=== PATIENT | male | born 1950 | race Caucasian/White ===

== ENCOUNTER 2016-11-25 02:40 | Emergency (ER) | payer MEDICARE ==
[~2016-11-25] VITALS: Ht 172.7 cm; Wt 114.0 kg
[~2016-11-25 02:40] MED LIST: LISI2.5T PO; METF500T4 PO; METO-93 PO; METO25TA2 PO
[2016-11-25 02:41] VITALS: BP 144/82
== END 2016-11-25 03:17 | disposition left against medical advice (07) ==
LOC: ED 03:15
DX: F41.1 Generalized anxiety disorder (principal); I10 Essential (primary) hypertension; E11.9 Type 2 diabetes mellitus without complications; Z91.013 Allergy to seafood
CPT/HCPCS: 99284

== ENCOUNTER 2016-12-07 12:57 | Inpatient (IN) | payer MEDICARE ==
[~2016-12-07] VITALS: Ht 170.2 cm; Wt 117.8 kg
[2016-12-07] MEDS ORDERED: NYST15CR2 TP (13:22)
[2016-12-07] MEDS ORDERED: ENAL20TA PO (13:22)
[2016-12-07] MEDS ORDERED: ATOR80TA75 PO (13:22)
[2016-12-07] MEDS ORDERED: FURO-93 PO (13:22)
[2016-12-07] MEDS ORDERED: HYDR25TA6 PO (13:22)
[2016-12-07] MEDS ORDERED: SODIUM CHLORIDE FLUSH 10ML SYR IVF ONE (13:30)
[2016-12-07] MEDS ORDERED: SODIUM CHLORIDE 0.9% 1,000ML IVBOLUS ONE (13:30)
[2016-12-07 13:55] LABS: ASPARTATE AMINO TRANSFERASE 68 U/L (15-37); BLOOD UREA NITROGEN 10 mg/dL (7-18)
[2016-12-07] MEDS ORDERED: PIPERACILLIN/TAZO/PMX 3.375GM 50 ML IVPB ONE (15:00)
[2016-12-07] MEDS ORDERED: VANCOMYCIN 1,800 MG in SODIUM CHLORIDE 0.9% 250 ML IV ONE (15:00)
[2016-12-07] MEDS ORDERED: VANCOMYCIN PER PHARMACY MC ONE (15:00)
[2016-12-07 15:12] LABS: PATH.CAST-FLAG NOT PRESENT; SPERM-FLAG NOT PRESENT; SRC-FLAG NOT PRESENT; XTAL-FLAG NOT PRESENT; YLC-FLAG NOT PRESENT
[2016-12-07] MEDS ORDERED: PIPERACILLIN/TAZO/PMX 3.375GM 50 ML ONE (15:19)
[2016-12-07 16:26] LABS: ABG COLLECTION SITE RIGHT BRACHIAL
[2016-12-07] MEDS ORDERED: VANCOMYCIN PER PHARMACY MC PRN (17:00)
[2016-12-07 17:17] LABS: IS PT STATUS REG ER OR PRE ER? YES
[2016-12-07 17:45] LABS: ACETAMINOPHEN < 2 mcg/mL (10-30); IS PT STATUS REG ER OR PRE ER? YES
[2016-12-07] MEDS ORDERED: PHARMACOKINETIC MONITORING MC PRN (19:00)
[2016-12-07] MEDS ORDERED: PHARMACOKINETIC CONSULTATION MC ONE (19:00)
[2016-12-07 19:48] VITALS: BP 111/76
[2016-12-07 20:05] LABS: DAU SCREEN DISCLAIMER
[2016-12-07] MEDS: INSULIN REGULAR 100 UNITS/ML, 3ML VIAL SQ-INSULIN SCH (21:00)
[2016-12-07] MEDS: PIPERACILLIN/TAZO/PMX 3.375GM 50 ML IV SCH (22:55)
[2016-12-08] MEDS ORDERED: MAGNESIUM SULFATE PMX 2GM/50ML 50 ML IV ONE (01:30)
[2016-12-08 01:47] VITALS: BP 103/64
[2016-12-08 02:11] LABS: IS PT STATUS REG ER OR PRE ER? NO
[2016-12-08] MEDS: PIPERACILLIN/TAZO/PMX 3.375GM 50 ML IV SCH ×4 (04:04→21:08)
[2016-12-08 05:21] LABS: HEMOGLOBIN 13.9 g/dL (13.7-18.0)
[2016-12-08 05:39] LABS: ASPARTATE AMINO TRANSFERASE 65 U/L (15-37); BLOOD UREA NITROGEN 9 mg/dL (7-18)
[2016-12-08] MEDS: INSULIN REGULAR 100 UNITS/ML, 3ML VIAL SQ-INSULIN SCH ×4 (09:00→20:54)
[2016-12-08 09:36] VITALS: BP 119/75
[2016-12-08] MEDS: VANCOMYCIN 1,800 MG in SODIUM CHLORIDE 0.9% 250 ML IV SCH (14:35)
[2016-12-08 14:59] VITALS: BP 104/64
[2016-12-08 20:09] VITALS: BP 131/81
[2016-12-08] MEDS: NYSTATIN CRM 15GM TP SCH (21:09)
[2016-12-09 00:47] VITALS: BP 155/81
[2016-12-09] MEDS: PIPERACILLIN/TAZO/PMX 3.375GM 50 ML IV SCH ×4 (04:03→21:42)
[2016-12-09] MEDS: VANCOMYCIN 1,800 MG in SODIUM CHLORIDE 0.9% 250 ML IV SCH (05:04)
[2016-12-09] MEDS: INSULIN REGULAR 100 UNITS/ML, 3ML VIAL SQ-INSULIN SCH ×4 (07:00→21:42)
[2016-12-09 07:07] VITALS: BP 138/90
[2016-12-09] MEDS ORDERED: FUROSEMIDE 10 MG/ML ORAL SOL PO SCH (09:00)
[2016-12-09] MEDS: ACETAMINOPHEN 325 MG TABLET PO PRN ×2 (09:45→16:42)
[2016-12-09] MEDS: NYSTATIN CRM 15GM TP SCH ×3 (09:45→21:42)
[2016-12-09] MEDS: FUROSEMIDE 20 MG TABLET PO SCH ×2 (09:45→21:42)
[2016-12-09] MEDS: HEPARIN 5,000 UNITS/ML, 1ML SQ SCH ×2 (09:45→16:31)
[2016-12-09] MEDS: POTASSIUM CHLORIDE 20 MEQ TAB.ER.PRT PO SCH (09:45)
[2016-12-09 13:54] VITALS: BP 148/81
[2016-12-09 19:14] VITALS: BP 153/88
[2016-12-09 20:21] VITALS: BP 180/86
[2016-12-09] MEDS: VANCOMYCIN 2,000 MG in SODIUM CHLORIDE 0.9% 500 ML IV SCH (22:37)
[2016-12-10] MEDS: HEPARIN 5,000 UNITS/ML, 1ML SQ SCH ×3 (02:21→17:32)
[2016-12-10 02:48] VITALS: BP 151/90
[2016-12-10] MEDS: PIPERACILLIN/TAZO/PMX 3.375GM 50 ML IV SCH ×4 (04:25→22:40)
[2016-12-10 05:38] LABS: HEMOGLOBIN 13.7 g/dL (13.7-18.0)
[2016-12-10 05:53] LABS: BLOOD UREA NITROGEN 16 mg/dL (7-18)
[2016-12-10] MEDS: INSULIN REGULAR 100 UNITS/ML, 3ML VIAL SQ-INSULIN SCH ×4 (07:00→21:00)
[2016-12-10 07:32] VITALS: BP 162/105
[2016-12-10] MEDS ORDERED: METOPROLOL TARTRATE 25 MG TABLET PO SCH (08:30)
[2016-12-10] MEDS: NYSTATIN CRM 15GM TP SCH ×3 (10:15→22:40)
[2016-12-10] MEDS: ACETAMINOPHEN 325 MG TABLET PO PRN ×2 (10:15→15:55)
[2016-12-10] MEDS: POTASSIUM CHLORIDE 20 MEQ TAB.ER.PRT PO SCH (10:15)
[2016-12-10] MEDS: FUROSEMIDE 20 MG TABLET PO SCH ×2 (10:16→22:41)
[2016-12-10] MEDS: LISINOPRIL 20 MG TABLET PO SCH ×2 (10:16→22:41)
[2016-12-10 12:10] VITALS: BP 148/99
[2016-12-10 13:47] VITALS: BP 144/91
[2016-12-10] MEDS: NICOTINE 21 MG/24 HR PATCH.TD24 TD SCH (16:28)
[2016-12-10] MEDS: VANCOMYCIN 2,000 MG in SODIUM CHLORIDE 0.9% 500 ML IV SCH (17:27)
[2016-12-10] MEDS: METOPROLOL TARTRATE 25 MG TABLET PO SCH (17:31)
[2016-12-10] MEDS ORDERED: METOPROLOL TARTRATE 50 MG TABLET PO SCH (18:00)
[2016-12-10 19:22] VITALS: BP 164/98
[2016-12-11 02:26] VITALS: BP 152/100
[2016-12-11] MEDS: HEPARIN 5,000 UNITS/ML, 1ML SQ SCH ×3 (02:54→16:45)
[2016-12-11] MEDS: PIPERACILLIN/TAZO/PMX 3.375GM 50 ML IV SCH ×4 (04:03→21:49)
[2016-12-11] MEDS: ASPIRIN 81 MG TABLET EC PO SCH (06:33)
[2016-12-11] MEDS: METOPROLOL TARTRATE 25 MG TABLET PO SCH ×2 (06:33→16:45)
[2016-12-11] MEDS: INSULIN REGULAR 100 UNITS/ML, 3ML VIAL SQ-INSULIN SCH ×4 (07:00→21:54)
[2016-12-11 07:17] VITALS: BP 158/101
[2016-12-11] MEDS: NICOTINE 21 MG/24 HR PATCH.TD24 TD SCH (08:28)
[2016-12-11] MEDS: NYSTATIN CRM 15GM TP SCH ×3 (08:28→21:49)
[2016-12-11] MEDS: LISINOPRIL 20 MG TABLET PO SCH ×2 (08:29→21:49)
[2016-12-11] MEDS: FUROSEMIDE 20 MG TABLET PO SCH ×2 (08:29→21:49)
[2016-12-11] MEDS: ACETAMINOPHEN 325 MG TABLET PO PRN (08:29)
[2016-12-11] MEDS: POTASSIUM CHLORIDE 20 MEQ TAB.ER.PRT PO SCH (08:29)
[2016-12-11] MEDS ORDERED: NICOTINE 21 MG/24 HR PATCH.TD24 TD SCH (09:00)
[2016-12-11] MEDS ORDERED: ENAL20TA PO (13:13)
[2016-12-11] MEDS: VANCOMYCIN 2,000 MG in SODIUM CHLORIDE 0.9% 500 ML IV SCH (13:37)
[2016-12-11 14:45] VITALS: BP 141/87
[2016-12-11] MEDS: GABAPENTIN 300 MG CAPSULE PO SCH ×2 (16:45→21:49)
[2016-12-11 19:47] VITALS: BP 142/90
[2016-12-12 01:52] VITALS: BP 126/83
[2016-12-12] MEDS: HEPARIN 5,000 UNITS/ML, 1ML SQ SCH ×2 (01:57→10:00)
[2016-12-12] MEDS: PIPERACILLIN/TAZO/PMX 3.375GM 50 ML IV SCH ×2 (04:18→10:37)
[2016-12-12 05:39] VITALS: BP 110/57
[2016-12-12] MEDS: METOPROLOL TARTRATE 25 MG TABLET PO SCH (05:42)
[2016-12-12] MEDS: ASPIRIN 81 MG TABLET EC PO SCH (05:42)
[2016-12-12] MEDS: INSULIN REGULAR 100 UNITS/ML, 3ML VIAL SQ-INSULIN SCH ×2 (07:00→11:00)
[2016-12-12] MEDS: LISINOPRIL 20 MG TABLET PO SCH (07:59)
[2016-12-12] MEDS: VANCOMYCIN 2,000 MG in SODIUM CHLORIDE 0.9% 500 ML IV SCH (07:59)
[2016-12-12] MEDS: NICOTINE 21 MG/24 HR PATCH.TD24 TD SCH (07:59)
[2016-12-12] MEDS: POTASSIUM CHLORIDE 20 MEQ TAB.ER.PRT PO SCH (08:00)
[2016-12-12] MEDS: NYSTATIN CRM 15GM TP SCH (08:00)
[2016-12-12] MEDS: FUROSEMIDE 20 MG TABLET PO SCH (08:00)
[2016-12-12] MEDS: GABAPENTIN 300 MG CAPSULE PO SCH ×2 (08:00→13:39)
[2016-12-12 08:55] VITALS: BP 135/90
[2016-12-12] MEDS ORDERED: GABA300C10 PO (11:08)
[2016-12-12] MEDS ORDERED: POTA20TA14 PO (11:08)
[2016-12-12] MEDS ORDERED: METO25TA35 PO (11:08)
[2016-12-12] MEDS ORDERED: NYST15CR33 TP (11:08)
[2016-12-12] MEDS ORDERED: ASPI-621 PO (11:08)
[2016-12-12] MEDS ORDERED: LISI-170 PO (11:08)
[2016-12-12] MEDS ORDERED: ALPR-475 PO (11:08)
[2016-12-12] MEDS ORDERED: NICO1PAT5 TD (11:08)
[2016-12-12] MEDS ORDERED: CEFD300C2 PO (11:21)
[2016-12-12] MEDS ORDERED: FURO-92 PO (11:29)
[2016-12-12 13:20] VITALS: BP 128/85
== END 2016-12-12 15:42 | disposition home or self-care (01) | DRG 291 ==
LOC: ED 15:12 → EDIP 15:13 → ED 15:19 → 4EST 18:16 → DCLOUNGE 12-12 15:24
PROVIDERS: ADMIT Hospitalist; ATTEND Hospitalist
DX: I11.0 Hypertensive heart disease with heart failure (principal); J96.01 Acute respiratory failure with hypoxia; G93.41 Metabolic encephalopathy; L03.115 Cellulitis of right lower limb; L03.116 Cellulitis of left lower limb; N39.0 Urinary tract infection, site not specified; I50.33 Acute on chronic diastolic (congestive) heart failure; B37.9 Candidiasis, unspecified; E11.9 Type 2 diabetes mellitus without complications; B36.9 Superficial mycosis, unspecified; J44.9 Chronic obstructive pulmonary disease, unspecified; E78.5 Hyperlipidemia, unspecified; I48.0 Paroxysmal atrial fibrillation; F12.90 Cannabis use, unspecified, uncomplicated; M51.36 Other intervertebral disc degeneration, lumbar region; Z90.81 Acquired absence of spleen; Z59.0 Homelessness; Z91.013 Allergy to seafood; R00.1 Bradycardia, unspecified; T44.7X5A Adverse effect of beta-adrenoreceptor antagonists, initial encounter
CPT/HCPCS: 36415; 36600; 70450; 71010; 72170; 74176; 78582; 80048; 80053; 80202; 80307; 80329; 81001; 82140; 82803; 82962; 83605; 83735; 84145; 84439; 84443; 84484; 85025; 85379; 85610; 85730; 87040; 87086; 87324; 93005; 93306; 93970; 96361; 96365; 96366; 96368; J1644; J1815; J2543; J3370; 92523-GN; A9540; A9558; C9898; G0480; J3475; J7030; J7040; J7050

== ENCOUNTER 2016-12-18 03:03 | Inpatient (IN) | payer MEDICARE ==
[~2016-12-18] VITALS: Ht 177.8 cm; Wt 117.0 kg
[~2016-12-18 03:03] MED LIST changes: +ALPR-475 PO; +ASPI-621 PO; +ATOR80TA75 PO; +CEFD300C2 PO; +ENAL20TA PO; +FURO-92 PO; +FURO-93 PO; +GABA300C10 PO; +HYDR25TA6 PO; +LISI-170 PO; +METO25TA35 PO; +NICO1PAT5 TD; +NYST15CR2 TP; +NYST15CR33 TP; +POTA20TA14 PO
[2016-12-18 04:04] LABS: ASPARTATE AMINO TRANSFERASE 18 U/L (15-37); BLOOD UREA NITROGEN 23 mg/dL (7-18)
[2016-12-18 04:08] LABS: DIFF TOTAL CELLS COUNTED 100 CELL DIFF; IS PT STATUS REG ER OR PRE ER? YES
[2016-12-18 04:09] LABS: ANISOCYTOSIS 1+; VERIFY COUNTS? YES
[2016-12-18] MEDS ORDERED: LEVOFLOXACIN/PMX 750MG/150ML 150 ML IVPB ONE (04:30)
[2016-12-18] MEDS ORDERED: FUROSEMIDE 40 MG/4 ML ONE (04:55)
[2016-12-18] MEDS ORDERED: LEVOFLOXACIN/PMX 750MG/150ML 150 ML ONE (04:55)
[2016-12-18] MEDS ORDERED: FUROSEMIDE 40 MG/4 ML IV ONE (05:00)
[2016-12-18] MEDS ORDERED: SODIUM CHLORIDE 0.9%, 500ML IVBOLUS ONE (05:00)
[2016-12-18] MEDS ORDERED: AZITHROMYCIN 500 MG in SODIUM CHLORIDE 0.9% 250 ML IV SCH (06:30)
[2016-12-18] MEDS ORDERED: ONDANSETRON ODT 4 MG PO PRN (06:30)
[2016-12-18] MEDS ORDERED: DOCUSATE 100 MG CAPSULE PO PRN (06:30)
[2016-12-18] MEDS ORDERED: POLYETHYLENE GLYCOL 17 GM PACKET PO PRN (06:30)
[2016-12-18] MEDS ORDERED: BISACODYL 10 MG SUPP PR PRN (06:30)
[2016-12-18] MEDS ORDERED: LABETALOL 5MG/ML, 20ML IV PRN (06:30)
[2016-12-18 07:01] VITALS: BP 125/81
[2016-12-18] MEDS: SODIUM CHLORIDE 0.9% 1,000 ML IV SCH ×2 (07:30→15:30)
[2016-12-18] MEDS ORDERED: HALOPERIDOL 5 MG/ML IM PRN (08:30)
[2016-12-18] MEDS: ENOXAPARIN 40 MG/0.4 ML SQ SCH (08:45)
[2016-12-18] MEDS: CEFTRIAXONE PMX 2GM/50ML 50 ML IV SCH (08:45)
[2016-12-18] MEDS: NICOTINE 14MG/24 HR PATCH.TD24 TD SCH (08:46)
[2016-12-18] MEDS: LISINOPRIL 20 MG TABLET PO SCH (08:46)
[2016-12-18] MEDS: GABAPENTIN 300 MG CAPSULE PO SCH ×3 (08:46→20:55)
[2016-12-18] MEDS ORDERED: LISINOPRIL 20 MG TABLET PO SCH (09:00)
[2016-12-18] MEDS ORDERED: ALBUTEROL/IPRATROPIUM 2.5MG/0.5MG, 3 ML NPPB PRN (12:00)
[2016-12-18] MEDS ORDERED: METOPROLOL TARTRATE 25 MG TABLET PO SCH (18:00)
[2016-12-18 18:40] VITALS: BP 95/64
[2016-12-18 20:29] VITALS: BP 108/57
[2016-12-18] MEDS: ATORVASTATIN 40 MG TABLET PO SCH (20:55)
[2016-12-18] MEDS: TRAZODONE 50MG TABLET PO PRN ×2 (20:55→21:02)
[2016-12-19] MEDS: SODIUM CHLORIDE 0.9% 1,000 ML IV SCH ×2 (00:55→10:00)
[2016-12-19 02:52] VITALS: BP 111/66
[2016-12-19] MEDS: ASPIRIN 81 MG TABLET EC PO SCH (05:55)
[2016-12-19] MEDS: CEFTRIAXONE PMX 2GM/50ML 50 ML IV SCH (05:55)
[2016-12-19] MEDS: ENOXAPARIN 40 MG/0.4 ML SQ SCH (05:55)
[2016-12-19] MEDS: NICOTINE 14MG/24 HR PATCH.TD24 TD SCH (05:55)
[2016-12-19 07:35] VITALS: BP 121/51
[2016-12-19 08:56] LABS: BLOOD UREA NITROGEN 22 mg/dL (7-18)
[2016-12-19] MEDS: GABAPENTIN 300 MG CAPSULE PO SCH ×3 (09:32→20:52)
[2016-12-19] MEDS: LISINOPRIL 20 MG TABLET PO SCH ×2 (09:38→11:48)
[2016-12-19] MEDS ORDERED: ZIPRASIDONE 20 MG INJ IM PRN (11:00)
[2016-12-19] MEDS: ACETAMINOPHEN 325 MG TABLET PO PRN (11:49)
[2016-12-19] MEDS: FUROSEMIDE 40 MG TABLET PO SCH (11:50)
[2016-12-19 13:50] VITALS: BP 139/80
[2016-12-19] MEDS: METOPROLOL TARTRATE 25 MG TABLET PO SCH (18:37)
[2016-12-19 19:15] VITALS: BP 118/75
[2016-12-19] MEDS: ATORVASTATIN 40 MG TABLET PO SCH (20:52)
[2016-12-19] MEDS: CEFDINIR 300 MG CAPSULE PO SCH (20:52)
[2016-12-20 01:28] VITALS: BP 139/87
[2016-12-20 01:52] LABS: DAU SCREEN DISCLAIMER
[2016-12-20] MEDS: ACETAMINOPHEN 325 MG TABLET PO PRN ×3 (02:00→23:46)
[2016-12-20] MEDS: ASPIRIN 81 MG TABLET EC PO SCH (06:08)
[2016-12-20] MEDS: METOPROLOL TARTRATE 25 MG TABLET PO SCH ×2 (06:09→18:32)
[2016-12-20] MEDS: NICOTINE 14MG/24 HR PATCH.TD24 TD SCH (06:11)
[2016-12-20] MEDS: ENOXAPARIN 40 MG/0.4 ML SQ SCH (06:13)
[2016-12-20 06:50] VITALS: BP 143/93
[2016-12-20] MEDS: LISINOPRIL 20 MG TABLET PO SCH (07:40)
[2016-12-20] MEDS: FUROSEMIDE 40 MG TABLET PO SCH (07:41)
[2016-12-20] MEDS: CEFDINIR 300 MG CAPSULE PO SCH ×2 (07:41→19:58)
[2016-12-20] MEDS: GABAPENTIN 300 MG CAPSULE PO SCH ×3 (07:41→19:58)
[2016-12-20 13:30] VITALS: BP 148/95
[2016-12-20 19:30] VITALS: BP 88/60
[2016-12-20] MEDS: ATORVASTATIN 40 MG TABLET PO SCH (19:58)
[2016-12-21] MEDS: METOPROLOL TARTRATE 25 MG TABLET PO SCH ×2 (05:43→16:53)
[2016-12-21] MEDS: ASPIRIN 81 MG TABLET EC PO SCH (06:04)
[2016-12-21] MEDS: ACETAMINOPHEN 325 MG TABLET PO PRN ×2 (06:04→19:39)
[2016-12-21 07:45] VITALS: BP 156/99
[2016-12-21] MEDS: ENOXAPARIN 40 MG/0.4 ML SQ SCH (08:20)
[2016-12-21] MEDS: FUROSEMIDE 40 MG TABLET PO SCH (08:21)
[2016-12-21] MEDS: LISINOPRIL 20 MG TABLET PO SCH (08:22)
[2016-12-21] MEDS: CEFDINIR 300 MG CAPSULE PO SCH ×2 (08:23→19:39)
[2016-12-21] MEDS: GABAPENTIN 300 MG CAPSULE PO SCH (08:23)
[2016-12-21] MEDS: NICOTINE 14MG/24 HR PATCH.TD24 TD SCH (08:25)
[2016-12-21 11:09] LABS: BLOOD UREA NITROGEN 18 mg/dL (7-18)
[2016-12-21] MEDS ORDERED: ARIPIPRAZOLE 5 MG TABLET PO ONE (14:00)
[2016-12-21 14:35] VITALS: BP 145/96
[2016-12-21] MEDS: GABAPENTIN 400 MG CAPSULE PO SCH ×2 (16:52→19:39)
[2016-12-21] MEDS: ATORVASTATIN 40 MG TABLET PO SCH (19:39)
[2016-12-21 19:40] VITALS: BP 132/87
[2016-12-22 03:05] VITALS: BP 118/81
[2016-12-22] MEDS: ACETAMINOPHEN 325 MG TABLET PO PRN (05:51)
[2016-12-22] MEDS: METOPROLOL TARTRATE 25 MG TABLET PO SCH ×2 (05:51→17:02)
[2016-12-22] MEDS: ASPIRIN 81 MG TABLET EC PO SCH (05:51)
[2016-12-22 07:48] VITALS: BP 121/79
[2016-12-22] MEDS ORDERED: PNEUMOCOCCAL 23 VACCINE IM-VACC ONE (08:30)
[2016-12-22] MEDS ORDERED: ARIPIPRAZOLE 10 MG TABLET PO SCH (09:00)
[2016-12-22] MEDS ORDERED: ARIPIPRAZOLE 5 MG TABLET PO SCH (09:00)
[2016-12-22] MEDS: GABAPENTIN 400 MG CAPSULE PO SCH (09:53)
[2016-12-22] MEDS: FUROSEMIDE 40 MG TABLET PO SCH (09:53)
[2016-12-22] MEDS: CEFDINIR 300 MG CAPSULE PO SCH ×2 (09:54→22:04)
[2016-12-22] MEDS: NICOTINE 14MG/24 HR PATCH.TD24 TD SCH (09:54)
[2016-12-22] MEDS: ENOXAPARIN 40 MG/0.4 ML SQ SCH (09:55)
[2016-12-22] MEDS: LISINOPRIL 20 MG TABLET PO SCH (09:55)
[2016-12-22 13:59] VITALS: BP 138/83
[2016-12-22] MEDS: GABAPENTIN 300 MG CAPSULE PO SCH ×2 (17:02→22:04)
[2016-12-22 19:55] VITALS: BP 128/84
[2016-12-22] MEDS: ATORVASTATIN 40 MG TABLET PO SCH (22:04)
[2016-12-23 01:47] VITALS: BP 136/87
[2016-12-23] MEDS: METOPROLOL TARTRATE 25 MG TABLET PO SCH ×2 (05:39→17:55)
[2016-12-23] MEDS: ASPIRIN 81 MG TABLET EC PO SCH (05:39)
[2016-12-23 08:30] VITALS: BP 129/89
[2016-12-23 09:18] LABS: BLOOD UREA NITROGEN 25 mg/dL (7-18)
[2016-12-23] MEDS: ENOXAPARIN 40 MG/0.4 ML SQ SCH (09:28)
[2016-12-23] MEDS: LISINOPRIL 20 MG TABLET PO SCH (09:28)
[2016-12-23] MEDS: CEFDINIR 300 MG CAPSULE PO SCH ×2 (09:28→21:40)
[2016-12-23] MEDS: GABAPENTIN 300 MG CAPSULE PO SCH ×2 (09:28→17:55)
[2016-12-23] MEDS: NICOTINE 14MG/24 HR PATCH.TD24 TD SCH (09:29)
[2016-12-23] MEDS: FUROSEMIDE 40 MG TABLET PO SCH (09:29)
[2016-12-23] MEDS: ARIPIPRAZOLE 5 MG TABLET PO SCH (09:29)
[2016-12-23 10:06] LABS: DIFF TOTAL CELLS COUNTED 100 CELL DIFF
[2016-12-23 10:13] LABS: VERIFY COUNTS? YES
[2016-12-23 14:30] VITALS: BP 140/93
[2016-12-23 19:21] VITALS: BP_SYST 110; BP_DIAS 7; BP_DIAS 76
[2016-12-23] MEDS: ATORVASTATIN 40 MG TABLET PO SCH (21:40)
[2016-12-23] MEDS: ACETAMINOPHEN 325 MG TABLET PO PRN (21:44)
[2016-12-24] MEDS: GABAPENTIN 300 MG CAPSULE PO SCH ×4 (00:39→20:41)
[2016-12-24 01:32] VITALS: BP 122/78
[2016-12-24] MEDS: ASPIRIN 81 MG TABLET EC PO SCH (06:10)
[2016-12-24] MEDS: METOPROLOL TARTRATE 25 MG TABLET PO SCH ×2 (06:12→20:41)
[2016-12-24 07:43] VITALS: BP 161/99
[2016-12-24] MEDS: NICOTINE 14MG/24 HR PATCH.TD24 TD SCH (09:42)
[2016-12-24] MEDS: CEFDINIR 300 MG CAPSULE PO SCH (09:43)
[2016-12-24] MEDS: LISINOPRIL 20 MG TABLET PO SCH (09:43)
[2016-12-24] MEDS: FUROSEMIDE 40 MG TABLET PO SCH (09:43)
[2016-12-24] MEDS: ARIPIPRAZOLE 5 MG TABLET PO SCH (09:44)
[2016-12-24] MEDS: ENOXAPARIN 40 MG/0.4 ML SQ SCH (09:45)
[2016-12-24 14:49] VITALS: BP 125/86
[2016-12-24 18:21] VITALS: BP 150/93
[2016-12-24] MEDS: ATORVASTATIN 40 MG TABLET PO SCH (20:45)
[2016-12-25 07:37] VITALS: BP 122/74
[2016-12-25] MEDS: ASPIRIN 81 MG TABLET EC PO SCH (08:00)
[2016-12-25] MEDS: METOPROLOL TARTRATE 25 MG TABLET PO SCH (08:00)
[2016-12-25] MEDS: GABAPENTIN 300 MG CAPSULE PO SCH (08:05)
[2016-12-25] MEDS: FUROSEMIDE 40 MG TABLET PO SCH (08:05)
[2016-12-25] MEDS: ARIPIPRAZOLE 5 MG TABLET PO SCH (08:05)
[2016-12-25] MEDS: LISINOPRIL 20 MG TABLET PO SCH (08:06)
[2016-12-25] MEDS: ENOXAPARIN 40 MG/0.4 ML SQ SCH (08:06)
[2016-12-25] MEDS: NICOTINE 14MG/24 HR PATCH.TD24 TD SCH (08:07)
[2016-12-25] MEDS ORDERED: GABA300C10 PO (12:24)
[2016-12-25] MEDS ORDERED: NICO1PAT4 TD (12:24)
[2016-12-25] MEDS ORDERED: ARIP5TAB6 PO (12:24)
== END 2016-12-25 14:35 | DRG 871 ==
LOC: ED 03:09 → EDIP 05:29 → 4NOR 06:53 → 3NE 12-19 16:08 → 3E 12-24 14:25
PROVIDERS: ADMIT Internal Medicine; ATTEND Internal Medicine
DX: A41.9 Sepsis, unspecified organism (principal); J18.9 Pneumonia, unspecified organism; F23 Brief psychotic disorder; I50.32 Chronic diastolic (congestive) heart failure; F30.2 Manic episode, severe with psychotic symptoms; R06.02 Shortness of breath; E78.5 Hyperlipidemia, unspecified; F12.90 Cannabis use, unspecified, uncomplicated; F17.210 Nicotine dependence, cigarettes, uncomplicated; F41.1 Generalized anxiety disorder; E11.42 Type 2 diabetes mellitus with diabetic polyneuropathy; I11.0 Hypertensive heart disease with heart failure; I48.0 Paroxysmal atrial fibrillation; Z59.0 Homelessness; Z87.01 Personal history of pneumonia (recurrent); Z90.81 Acquired absence of spleen; Z91.14 Patient's other noncompliance with medication regimen; Z91.013 Allergy to seafood; Z82.49 Family history of ischemic heart disease and other diseases of the circulatory system
CPT/HCPCS: 36415; 71010; 80048; 80053; 80307; 81003; 82962; 83036; 83605; 83735; 83880; 84145; 84484; 85025; 87040; 90732; 93005; 96365; 96366; 96375; J0456; J0696; J1650; J1940; J1956; J7030; J7040; J7050